=== PATIENT | female | born 1940 | race Caucasian/White ===

== ENCOUNTER 2018-03-05 12:12 | Emergency (ER) | payer MEDICARE ==
[2018-03-05] MEDS ORDERED: hydrOXYzine HCl 25 MG Tab PO ONE (12:39)
[2018-03-05] MEDS ORDERED: Ketorolac 15 MG/ML SDV IVPUSH ONE (12:39)
[2018-03-05] MEDS ORDERED: Sodium Chloride 0.9% 1,000 ML IV ONE (12:39)
[2018-03-05] MEDS ORDERED: Ondansetron 4 MG/2 ML SDV IVPUSH ONE (12:41)
--- NOTE | 2018-03-05 12:46 | EDM.PDOC ---
ED HPI GENERAL MEDICAL PROBLEM - General Chief Complaint: Headache Stated Complaint: HEADACHE Time Seen by Provider: 03/05/18 12:30 Source of Information: Reports: Patient History Limitations: Reports: No Limitations - History of Present Illness INITIAL COMMENTS - FREE TEXT/NARRATIVE: Patient comes into the emergency department with complaint of a headache. Patient states that his been intermittent over the course of the last 2 days. He states that she does have some photophobia, difficulty focusing on items, and a pounding sensation. Patient states that she has had these before however they are infrequent. She started having a headache approximately 2 days ago went to bed with a headache woke up this morning without a headache but it started again approximately at 10:30. She denies any recent injuries or falls. Denies feeling weak, lightheaded, confusion, or difficulty, SOB, chest pain, abdominal discomfort or edema. Onset: Gradual Quality: Reports: Throbbing Improves with: Reports: Rest Worsens with: Reports: Other (light ), Movement Associated Symptoms: Reports: No Other Symptoms Left Headache Pain Score (Numeric/FACES): 8 - Related Data Allergies Allergy/AdvReac Type Severity Reaction Status Date / Time No Known Allergies Allergy Verified 03/05/18 13:53 Home Meds: Home Meds Rosuvastatin Calcium [Crestor] 10 mg PO DAILY 05/17/15 [History] Anastrozole 1 mg PO DAILY 10/29/15 [History] Multivitamin [Multivitamins] 1 tab PO DAILY 03/28/16 [History] Past Medical History HEENT History: Reports: Cataract Cardiovascular History: Reports: High Cholesterol Respiratory History: Reports: None Gastrointestinal History: Reports: Diverticulosis, Other (See Below) Other Gastrointestinal History: diverticulitis Genitourinary History: Reports: None Musculoskeletal History: Reports: Arthritis Neurological History: Reports: None Psychiatric History: Reports: None Endocrine/Metabolic History: Reports: None Hematologic History: Reports: None Immunologic History: Reports: None Oncologic (Cancer) History: Reports: Breast Dermatologic History: Reports: None - Past Surgical History Head Surgeries/Procedures: Reports: None HEENT Surgical History: Reports: Cataract Surgery, Tonsillectomy Female Surgical History: Reports: Hysterectomy, Other (See Below) Endocrine Surgical History: Reports: None Neurological Surgical History: Reports: None Musculoskeletal Surgical History: Reports: None Oncologic Surgical History: Reports: Lumpectomy ED ROS GENERAL - Review of Systems Review Of Systems: See Below Constitutional: Reports: No Symptoms HEENT: Reports: No Symptoms Respiratory: Reports: No Symptoms Cardiovascular: Reports: No Symptoms Endocrine: Reports: No Symptoms GI/Abdominal: Reports: No Symptoms : Reports: No Symptoms Musculoskeletal: Reports: No Symptoms Skin: Reports: No Symptoms Neurological: Reports: Headache. Denies: Confusion, Dizziness, Numbness, Paresthesia, Pre-Existing Deficit, Seizure, Syncope, Tingling, Tremors, Trouble Speaking, Difficulty Walking, Weakness Psychiatric: Reports: No Symptoms Hematologic/Lymphatic: Reports: No Symptoms Immunologic: Reports: No Symptoms - Physical Exam Exam: See Below Exam Limited By: No Limitations General Appearance: Alert, WD/WN, No Apparent Distress Eye Exam: Bilateral Eye: EOMI, PERRL Head Exam: Atraumatic, Normocephalic Neck: Normal Inspection, Supple, Non-Tender, Full Range of Motion Respiratory/Chest: No Respiratory Distress, Lungs Clear, No Accessory Muscle Use , Chest Non-Tender Cardiovascular: Normal Peripheral Pulses, Regular Rate, Rhythm GI/Abdominal: Normal Bowel Sounds, Soft, Non-Tender, No Distention Neuro Exam (Abbreviated): Alert, Oriented, Normal Cognition, Normal Gait, No Motor/Sensory Deficits Back Exam: Normal Inspection, Full Range of Motion Extremities: Normal Inspection, Normal Range of Motion, Non-Tender, Normal Capillary Refill Psychiatric: Normal Affect, Normal Mood Skin Exam: Warm, Intact, Normal Color Course - Vital Signs Last Recorded V/S: Last Vital Signs Temp 36.4 C 03/05/18 12:20 Pulse 83 03/05/18 12:20 Resp 18 03/05/18 12:20 BP 144/75 H 03/05/18 12:20 Pulse Ox 99 03/05/18 12:20 - Orders/Labs/Meds Orders: Active Orders 24 hr Category Date Time Status Cardiac Monitoring [RC] . DIRECTED Care 03/05/18 13:22 Active EKG Documentation Completion [RC] STAT Care 03/05/18 13:22 Active Labs: Laboratory Tests 03/05/18 03/05/18 03/05/18 Range/Units 13:37 13:37 13:37 WBC 4.7 (4.0-10.0) x10^3/uL RBC 4.06 (4.00-5.50) x10^6/uL Hgb 12.6 (12.0-16.0) g/dL Hct 37.3 (33.0-47.0) % MCV 91.9 (78.0-93.0) fL MCH 31.0 (26.0-32.0) pg MCHC 33.8 (32.0-36.0) g/dL RDW Coeff of Lorrie 13.6 (10.0-15.0) % Plt Count 102 L (130-400) x10^3/uL Neut % (Auto) 64.1 (50.0-80.0) % Lymph % (Auto) 26.4 (25.0-50.0) % [place] % (Auto) 8.7 (2.0-11.0) % Eos % (Auto) 0.6 (0.0-4.0) % Baso % (Auto) 0.2 (0.2-1.2) % PT 10.6 (9.6-11.4) SEC INR 1.0 L (2.0-3.5) Sodium 143 (136-145) mmol/L Potassium 3.4 L (3.5-5.1) mmol/L Chloride 107 (98-107) mmol/L Carbon Dioxide 23 (21-32) mmol/L Anion Gap 16.4 (10-20) mmol/L BUN 11 (7-18) mg/dL Creatinine 0.8 (0.55-1.02) mg/dL Est Cr Clr Drug Dosing TNP Estimated GFR (MDRD) > 60 Glucose 100 (74-106) mg/dL Calcium 8.8 (8.5-10.1) mg/dL Corrected Calcium 9.04 (8.5-10.1) mg/dL Total Bilirubin 0.8 (0.2-1.0) mg/dL AST 17 (15-37) U/L ALT 19 (14-59) U/L Alkaline Phosphatase 78 (46-116) U/L POC Troponin I (0.00-0.08) ng/mL NT-Pro-B Natriuret Pep 45 (<=450) pg/mL Total Protein 6.9 (6.4-8.2) g/dL Albumin 3.7 (3.4-5.0) g/dL Globulin 3.2 Albumin/Globulin Ratio 1.16 03/05/18 Range/Units 13:37 WBC (4.0-10.0) x10^3/uL RBC (4.00-5.50) x10^6/uL Hgb (12.0-16.0) g/dL Hct (33.0-47.0) % MCV (78.0-93.0) fL MCH (26.0-32.0) pg MCHC (32.0-36.0) g/dL RDW Coeff of Lorrie (10.0-15.0) % Plt Count (130-400) x10^3/uL Neut % (Auto) (50.0-80.0) % Lymph % (Auto) (25.0-50.0) % [place] % (Auto) (2.0-11.0) % Eos % (Auto) (0.0-4.0) % Baso % (Auto) (0.2-1.2) % PT (9.6-11.4) SEC INR (2.0-3.5) Sodium (136-145) mmol/L Potassium (3.5-5.1) mmol/L Chloride (98-107) mmol/L Carbon Dioxide (21-32) mmol/L Anion Gap (10-20) mmol/L BUN (7-18) mg/dL Creatinine (0.55-1.02) mg/dL Est Cr Clr Drug Dosing Estimated GFR (MDRD) Glucose (74-106) mg/dL Calcium (8.5-10.1) mg/dL Corrected Calcium (8.5-10.1) mg/dL Total Bilirubin (0.2-1.0) mg/dL AST (15-37) U/L ALT (14-59) U/L Alkaline Phosphatase (46-116) U/L POC Troponin I 0.00 (0.00-0.08) ng/mL NT-Pro-B Natriuret Pep (<=450) pg/mL Total Protein (6.4-8.2) g/dL Albumin (3.4-5.0) g/dL Globulin Albumin/Globulin Ratio Meds: Medications Discontinued Medications Generic Name Dose Route Start Last Admin Trade Name Freq PRN Reason Stop Dose Admin Aspirin 324 mg 03/05/18 14:07 03/05/18 14:11 Aspirin PO 03/05/18 14:08 324 mg ONETIME ONE Administration Hydroxyzine HCl 25 mg 03/05/18 12:39 03/05/18 13:10 Atarax PO 03/05/18 12:40 25 mg ONETIME ONE Administration Sodium Chloride 1,000 mls @ 1,000 mls/hr 03/05/18 12:39 03/05/18 13:10 Normal Saline IV 03/05/18 13:38 1,000 mls/hr ONETIME ONE Administration Ketorolac Tromethamine 15 mg 03/05/18 12:39 03/05/18 13:10 Toradol IVPUSH 03/05/18 12:40 15 mg ONETIME ONE Administration Ondansetron HCl 4 mg 03/05/18 12:41 03/05/18 13:13 Zofran IVPUSH 03/05/18 12:42 4 mg ONETIME ONE Administration Departure - Departure Time of Disposition: 14:10 Disposition: DC/Tfer to Acute Hospital 02 Condition: Good Clinical Impression: Migraine, National Institutes of Health (NIH) Stroke Scale dysarthria score 2, severe dysarthria; patient's speech is so slurred as to be unintelligible in the absence of or out of proportion to any dysphasia, or is mute/anarthric Stroke Qualifiers: CVA mechanism: unspecified Qualified Code(s): I63.9 - Cerebral infarction, unspecified - Discharge Information *PRESCRIPTION DRUG MONITORING PROGRAM REVIEWED*: Not Applicable *COPY OF PRESCRIPTION DRUG MONITORING REPORT IN PATIENT GARRETT: Not Applicable Instructions: Migraine Headache, [id number], Dehydration, Adult, [id number] Referrals: Milana Jarrett NP [Primary Care Provider] - Forms: ED Department Discharge, [facility] Additional Instructions: - Problem List Review Problem List Initiated/Reviewed/Updated: Yes - My Orders Last 24 Hours: My Active Orders 03/05/18 13:22 Cardiac Monitoring [RC] . DIRECTED EKG Documentation Completion [RC] STAT - Assessment/Plan Last 24 Hours: My Active Orders 03/05/18 13:22 Cardiac Monitoring [RC] . DIRECTED EKG Documentation Completion [RC] STAT Assessment:: 1. Headache 2. Dysarthric speech-stroke code Plan: 1. IV fluids given in ER. 2. Ketorolac, hydroxyzine, and Zofran given in ER. 3. Did offer to complete a CT scan. At this time the pt is declining for she feels it is a "typical headache". We did discuss we are more than willing to evaluate if necessary 4. Education provided to the patient regarding activity, diet, and follow up 5. All questions answered prior to discharge 6. 1322 came out of the room stating that she was not speaking her words correctly. Stroke code called. 7. Radiology called back at 1350 it no acute findings 8. ASA given. 9. Consult completed with Dr. Watkins Neurology and Dr. Vazquez ED. Pt will be transferred emergently to the ED. No TPA advised. Pt will be transported ALS. Acceptance of admission 1410 10. Headache is resolved. VSS. No change in Speech continues to be dysarthric 11. Pt left 14:21.
--- NOTE | 2018-03-05 13:52 | CT ---
[id number] CT/CT Head Stroke Protocol EXAM: NONCONTRAST HEAD CT INDICATION: STROKE. COMPARISON: None. DISCUSSION: There is mild generalized atrophy. There is a prominent Virchow-Hardik space in the right basal ganglia. Nuno-white matter differentiation is maintained. No mass effect or midline shift. No acute hemorrhage or extra-axial fluid collection. No acute territorial infarct is identified. A limited look at the orbits and paranasal sinuses is unremarkable. IMPRESSION: 1. No acute findings. Rom Lozano MD 03/05/18 [id number] Thank you for allowing us to participate in the care of your patient.
[2018-03-05] MEDS ORDERED: Aspirin 81 MG Tab.Chew PO ONE (14:07)
[2018-03-05 14:13] LABS: CHLORIDE,CL 107 mmol/L (98-107); SODIUM,NA 143 mmol/L (136-145)
[2018-03-05 14:14] LABS: ANION GAP 16.4 mmol/L (10-20)
[2018-03-05 16:35] VITALS: BP 142/67
== END 2018-03-05 14:18 | disposition short-term general hospital (02) ==
LOC: VM.ED 12:12
DX: G43.909 Migraine, unspecified, not intractable, without status migrainosus (principal); I63.9 Cerebral infarction, unspecified; R29.702 NIHSS score 2; R47.1 Dysarthria and anarthria; R47.81 Slurred speech; E78.00 Pure hypercholesterolemia, unspecified; Z79.899 Other long term (current) drug therapy
CPT/HCPCS: 36415; 70450; 80053; 83880; 84484; 85025; 85610; 93005; 96361; 96374; 96375; 99285; A9270; J1885; J2405; J7030

== ENCOUNTER 2018-03-15 08:15 | Day surgery (SDC) | payer MEDICARE ==
[2018-03-15] MEDS ORDERED: Propofol 200 MG/20 ML SDV ONE (09:07)
[2018-03-15] MEDS: Lactated Ringers 1,000 ML IV SCH (09:08)
[2018-03-15 10:48] VITALS: BP 118/67
--- NOTE | 2018-03-15 11:37 | OR ---
PREOPERATIVE DIAGNOSIS: Weight loss and abnormal CT findings. POSTOPERATIVE DIAGNOSIS: Weight loss and abnormal CT findings. PROCEDURE PERFORMED: Colonoscopy. INDICATION: The patient is a 77-year-old female with history of unintended weight loss over the last few months. She also had a CT scan done recently which showed some sigmoid thickening, presents for colonoscopy for further evaluation. PROCEDURE IN DETAIL: This was done in the endoscopy suite. Sedation was given per Anesthesia. She was placed in a left lateral position. First, a rectal exam was done, was normal. Scope was introduced into the rectum and slowly advanced to the rectum, sigmoid, descending, transverse, and ascending colon until the cecum was reached. Upon reaching the cecum, scope was slowly withdrawn looking at all mucosal surfaces on the way out. No mucosal abnormalities, lesions, or polyps were noted. FINAL DIAGNOSIS: Normal colonoscopy. BKD: 03/15/2018 10:16:47 MODL: 03/15/2018 11:26:39 /[id number]
== END 2018-03-15 11:00 | disposition home or self-care (01) ==
LOC: VM.SDS 08:15
PROVIDERS: ATTEND Surgery
DX: R63.4 Abnormal weight loss (principal); R93.3 Abnormal findings on diagnostic imaging of other parts of digestive tract; E78.5 Hyperlipidemia, unspecified; Z86.010 Personal history of colon polyps; Z79.899 Other long term (current) drug therapy
CPT/HCPCS: 00811; J2704; J7120

== ENCOUNTER 2018-11-29 14:02 | Emergency (ER) | payer MEDICARE ==
--- NOTE | 2018-11-29 14:22 | EDM.PDOC ---
ED HPI GENERAL MEDICAL PROBLEM - General Chief Complaint: Chest Pain Stated Complaint: CHEST PAIN NAUSEA Time Seen by Provider: 11/29/18 14:05 Source of Information: Reports: Patient, Family History Limitations: Reports: No Limitations - History of Present Illness INITIAL COMMENTS - FREE TEXT/NARRATIVE: Patient states while at home approximately 11:00 while getting her hair done she passed out for a minute when she woke up she was clammy and had a nauseated feeling and chest pressure that lasted a few minutes and went away than the chest pressure returned along with the nausea. She was able to get up and walk outside with the help of the hairdresser. And had a warm sensation over her with the feeling of nausea that she wanted to vomit but could not. She denies any chest pain shortness breath headache vision changes no abdominal pain or back pain states she has never seen a heart doctor before never had any issues like this before and felt fine this morning she got up late breakfast at her normal routine she states she is very active Family history positive for [place] CVA negative PE Onset: Today, Sudden Duration: Hour(s): Quality: Reports: Pressure Severity: Mild Improves with: Reports: Rest Worsens with: Reports: None - Related Data Allergies Allergy/AdvReac Type Severity Reaction Status Date / Time No Known Allergies Allergy Verified 03/15/18 08:53 Home Meds: Home Meds Rosuvastatin Calcium [Crestor] 10 mg PO DAILY 05/17/15 [History] Anastrozole 1 mg PO DAILY 10/29/15 [History] Multivitamin [Multivitamins] 1 tab PO DAILY 03/28/16 [History] Acetaminophen 650 mg PO Q6HR PRN 03/11/18 [History] Mirtazapine 15 mg PO BEDTIME 03/11/18 [History] Omeprazole Magnesium 20 mg PO ASDIRECTED 03/11/18 [History] Promethazine [Phenergan] 25 mg PO Q4H PRN 03/11/18 [History] Past Medical History HEENT History: Reports: Cataract Cardiovascular History: Reports: High Cholesterol Respiratory History: Reports: None Gastrointestinal History: Reports: Colon Polyp Other Gastrointestinal History: diverticulitis Genitourinary History: Reports: None 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: Musculoskeletal History: Reports: Arthritis, Other (See Below) Other Musculoskeletal History: Osteopenia Neurological History: Reports: Migraines Psychiatric History: Reports: None Endocrine/Metabolic History: Reports: None, Osteopenia Hematologic History: Reports: Other (See Below) Other Hematologic History: Thrombocytopenia Immunologic History: Reports: None Oncologic (Cancer) History: Reports: Breast Dermatologic History: Reports: None - Past Surgical History Head Surgeries/Procedures: Reports: None HEENT Surgical History: Reports: Cataract Surgery, Tonsillectomy Cardiovascular Surgical History: Reports: None GI Surgical History: Reports: Appendectomy, Colonoscopy Female Surgical History: Reports: Hysterectomy, Other (See Below) Other Female Surgeries/Procedures: lumpectomy Endocrine Surgical History: Reports: None Neurological Surgical History: Reports: None Musculoskeletal Surgical History: Reports: Knee Replacement Oncologic Surgical History: Reports: Lumpectomy ED ROS GENERAL - Review of Systems Review Of Systems: See Below Constitutional: Reports: No Symptoms. Denies: Fever, Chills, Malaise, Weakness HEENT: Reports: No Symptoms Respiratory: Reports: No Symptoms. Denies: Shortness of Breath, Wheezing, Pleuritic Chest Pain Cardiovascular: Reports: Lightheadedness, Syncope. Denies: Chest Pain, Dyspnea on Exertion, Palpitations, PND Endocrine: Reports: No Symptoms GI/Abdominal: Reports: No Symptoms : Reports: No Symptoms Musculoskeletal: Reports: No Symptoms Skin: Reports: No Symptoms Neurological: Reports: No Symptoms Psychiatric: Reports: No Symptoms Hematologic/Lymphatic: Reports: No Symptoms Immunologic: Reports: No Symptoms - Physical Exam Exam: See Below Exam Limited By: No Limitations General Appearance: Alert, WD/WN, No Apparent Distress Eye Exam: Bilateral Eye: EOMI, PERRL Ears: Hearing Grossly Normal Nose: Normal Inspection, Normal Mucosa, No Blood Throat/Mouth: Normal Inspection, Normal Lips, Normal Teeth, Normal Gums, Normal Oropharynx, Normal Voice, No Airway Compromise Head Exam: Atraumatic, Normocephalic Neck: Normal Inspection, Supple, Non-Tender, Full Range of Motion Respiratory/Chest: No Respiratory Distress, Lungs Clear, Normal Breath Sounds, No Accessory Muscle Use, Chest Non-Tender Cardiovascular: Normal Peripheral Pulses, Regular Rate, Rhythm, No Edema, No Gallop, No JVD, No Murmur, No Rub GI/Abdominal: Normal Bowel Sounds, Soft, Non-Tender, No Organomegaly, No Distention Neuro Exam (Abbreviated): Alert, Oriented, CN II-XII Intact, Normal Cognition, No Motor/Sensory Deficits, Other (Full range of motion all extremities cranial nerves II through XII are intact. 5/5 upper extremity lower extremity equal herb digger no pronator sway ) Extremities: Normal Inspection, Normal Range of Motion, No Pedal Edema, Normal Capillary Refill Psychiatric: Normal Affect, Normal Mood Skin Exam: Warm, Intact, Normal Color, No Rash Course - Vital Signs Text/Narrative:: EKG shows normal sinus rhythm no acute findings CBC BMP troponin EKG chest x-ray labs all neg called [facility] [address] Elvis Vazquez will accept ok with asa hold heprin 2nd no cp - Orders/Labs/Meds Orders: Active Orders 24 hr Category Date Time Status EKG Documentation Completion [RC] STAT Care 11/29/18 14:15 Active Labs: Laboratory Tests 11/29/18 11/29/18 Range/Units 14:33 14:33 WBC 5.7 (4.0-10.0) x10^3/uL RBC 4.73 (4.00-5.50) x10^6/uL Hgb 15.0 D (12.0-16.0) g/dL Hct 41.6 (33.0-47.0) % MCV 87.9 D (78.0-93.0) fL MCH 31.7 (26.0-32.0) pg MCHC 36.1 H (32.0-36.0) g/dL RDW Coeff of Lorrie 13.1 (10.0-15.0) % Plt Count 94 L (130-400) x10^3/uL Neut % (Auto) 74.9 (50.0-80.0) % Lymph % (Auto) 18.2 L (25.0-50.0) % [place] % (Auto) 6.0 (2.0-11.0) % Eos % (Auto) 0.5 (0.0-4.0) % Baso % (Auto) 0.4 (0.2-1.2) % Sodium 142 (69-191) mmol/L Potassium 3.6 (1.5-9.9) mmol/L Chloride 104 (54-184) mmol/L Carbon Dioxide 23 (21-32) mmol/L Anion Gap 18.6 (10-20) mmol/L BUN 18 (7-18) mg/dL Creatinine 0.9 (0.55-1.02) mg/dL Est Cr Clr Drug Dosing TNP Estimated GFR (MDRD) > 60 Glucose 110 H (74-106) mg/dL Calcium 9.4 (8.5-10.1) mg/dL Troponin I < 0.017 (<=0.056) ng/mL Departure - Departure Time of Disposition: 16:30 Disposition: DC/Tfer to Acute Hospital 02 Condition: Good Clinical Impression: Syncope, Chest pressure - Discharge Information *PRESCRIPTION DRUG MONITORING PROGRAM REVIEWED*: No *COPY OF PRESCRIPTION DRUG MONITORING REPORT IN PATIENT GARRETT: No Forms: ED Department Discharge - Problem List & Annotations (1) Syncope SNOMED Code(s): 064836841 Code(s): R55 - SYNCOPE AND COLLAPSE Status: Acute Current Visit: Yes (2) Chest pressure SNOMED Code(s): 461394397 Code(s): R07.89 - OTHER CHEST PAIN Status: Acute Current Visit: Yes - My Orders Last 24 Hours: My Active Orders 11/29/18 14:15 EKG Documentation Completion [RC] STAT - Assessment/Plan Last 24 Hours: My Active Orders 11/29/18 14:15 EKG Documentation Completion [RC] STAT
[2018-11-29 15:05] LABS: ANION GAP 18.6 mmol/L (10-20); CHLORIDE,CL 104 mmol/L (54-184); SODIUM,NA 142 mmol/L (69-191)
--- NOTE | 2018-11-29 15:31 | CR ---
[id number] RAD/RAD Chest PA or AP 1V EXAM: RAD Chest PA or AP 1V INDICATION: CHEST PAIN. COMPARISON: None. DISCUSSION: Cardiomediastinal silhouette is normal in size and contour. No infiltrate, effusion, pneumothorax, or edema. IMPRESSION: No acute findings. Macho Ramos MD 11/29/18 1531 Thank you for allowing us to participate in the care of your patient.
[2018-11-29 16:30] VITALS: PULSE 62
[2018-11-29] MEDS ORDERED: Aspirin 81 MG Tab.Chew PO ONE (16:33)
[2018-11-29 16:56] VITALS: BP 167/73
== END 2018-11-29 17:25 | disposition short-term general hospital (02) ==
LOC: VM.ED 14:02
DX: R55 Syncope and collapse (principal); R07.89 Other chest pain; E78.00 Pure hypercholesterolemia, unspecified; Z79.899 Other long term (current) drug therapy; Z85.3 Personal history of malignant neoplasm of breast
CPT/HCPCS: 36415; 71045; 80048; 84484; 85025; 93005; 99285; A9270

== ENCOUNTER 2024-08-20 20:44 | Emergency (ER) | payer MEDICARE ==
[2024-08-20] MEDS ORDERED: Sodium Chloride 0.9% 10 ML Syringe FLUSH PRN (21:05)
[2024-08-20] MEDS: Sodium Chloride 0.9% 500 ML IV ONE (21:14)
[2024-08-20 21:23] LABS: BASOPHILS PERCENT AUTO 0.2 % (0.2-1.2); EOSINOPHILS ABSOLUTE AUTO 0.1 x10^3/uL (0.0-0.5); EOSINOPHILS PERCENT AUTO 1.3 % (0.0-4.0); HEMATOCRIT 38.3 % (33.0-47.0); HEMOGLOBIN 13.6 g/dL (12.0-16.0); IMMATURE GRAN ABSOLUTE AUTO 0.01 x10^3/uL (0.00-0.07); LYMPHOCYTES ABSOLUTE AUTO 1.8 x10^3/uL (1.0-4.8); LYMPHOCYTES PERCENT AUTO 39.7 % (25.0-50.0); MEAN CORPUSCULAR HEMOGLOBIN 32.1 pg (26.0-32.0); MEAN CORPUSCULAR HGB CONC 35.5 g/dL (32.0-36.0); MEAN CORPUSCULAR VOLUME 90.3 fL (78.0-93.0); MONOCYTES ABSOLUTE AUTO 0.5 x10^3/uL (0.0-0.8); MONOCYTES PERCENT AUTO 10.3 % (2.0-11.0); NEUTROPHILS ABSOLUTE AUTO 2.2 x10^3/uL (1.8-7.7); NEUTROPHILS PERCENT AUTO 48.3 % (50.0-80.0); PLATELET COUNT,PLT 88 x10^3/uL (130-400); RED BLOOD CELL COUNT 4.24 x10^6/uL (4.00-5.50); WHITE BLOOD CELL COUNT,WBC 4.5 x10^3/uL (4.0-10.0)
[2024-08-20 21:24] LABS: APPEARANCE,URINE CLEAR (CLEAR); BILIRUBIN,URINE NEGATIVE (NEGATIVE); COLOR,URINE LIGHT YELLOW (YELLOW); GLUCOSE,URINE NEGATIVE (NEGATIVE); KETONES,URINE NEGATIVE (NEGATIVE); LEUKOCYTE ESTERASE,URINE SMALL (NEGATIVE); NITRITE,URINE NEGATIVE (NEGATIVE); OCCULT BLOOD,URINE TRACE-INTACT (NEGATIVE); PROTEIN,URINE NEGATIVE (NEGATIVE)
[2024-08-20 21:38] LABS: RBC,URINE 0-5 /HPF (NOT SEEN); SQUAMOUS EPITHELIAL CELLS,UR FEW /HPF (NOT SEEN); WBC,URINE 0-5 /HPF (NOT SEEN)
[2024-08-20 21:39] LABS: BACTERIA,URINE FEW /HPF (NOT SEEN)
[2024-08-20] MEDS: Acetaminophen 500 MG Tab PO ONE (21:39)
[2024-08-20 21:52] LABS: A/G RATIO 1.43; ALANINE AMINOTRANSFERASE,ALT 18 U/L (14-59); ALKALINE PHOSPHATASE 111 U/L (46-116); ASPARTATE AMNIOTRANSFERASE,AST 16 U/L (15-37); BILIRUBIN TOTAL 0.8 mg/dL (0.2-1.0); BLOOD UREA NITROGEN,BUN 16 mg/dL (7-18); CALCIUM 9.1 mg/dL (8.5-10.1); CARBON DIOXIDE,CO2 27 mmol/L (21-32); CHLORIDE,CL 104 mmol/L (98-107); GLUCOSE RANDOM 118 mg/dL (70-99); POTASSIUM,K 4.3 mmol/L (3.5-5.1); PROTEIN TOTAL,TP 6.8 g/dL (6.4-8.2); SODIUM,NA 140 mmol/L (136-145)
[2024-08-20 21:53] LABS: ANION GAP 13.3 mmol/L (5-15); ESTIMATED GFR 56 mL/min (>=60)
[2024-08-20] MEDS: Iopamidol 755 Mg/ML 100 ML Bottle IVPUSH ONE (22:28)
[2024-08-21 01:07] VITALS: BP 155/72; PULSE 63
== END 2024-08-21 00:18 | disposition home or self-care (01) ==
LOC: VM.ED 20:44
DX: R41.3 Other amnesia (principal); E78.00 Pure hypercholesterolemia, unspecified; Z79.899 Other long term (current) drug therapy
CPT/HCPCS: 70496; 80053; 81001; 84484; 85025; 93005; 93010; 96360; 96361; 99284; 99284-25; A9270-GY; J7030; Q9967